=== PATIENT | male | born 1975 | race Hispanic/Latino ===

== ENCOUNTER → 2020-09-13 10:31 | Outpatient (CLI) | payer OTHER, SELFPAY ==
--- NOTE | ~2020-09-13 | MR_ITS ---
EXAMINATION: MR abdomen wo/w con DATE: 09/13/2020 11:43 INDICATION: Liver mass on CT . TECHNIQUE: Magnetic resonance imaging (MRI) of the abdomen was performed without and with 20 mL Multi andrea intravenous contrast. Sequences included coronal T2-weighted SS-FSE, coronal and axial FS 2D-F IESTA, axial STIR FSE, axial T2-weighted SS-FSE, axial T2-weighted FS SS-FSE, axial diffusion-weighte d SE, axial dual-echo T1-weighted FSPGR, and axial and coronal T1-weighted LAVA. Postcontrast axial T 1-weighted LAVA images were obtained in a time course. Postcontrast coronal T1-weighted LAVA images w ere obtained. COMPARISON: None. FINDINGS: Mild diffuse hepatic steatosis with small amount of signal dropout on opposed phase images. 7.3 x 5.2 cm mass in segment 4A of the liver which is negligibly hyperdense on T1 and T2-weighted imaging to t he surrounding hepatic parenchyma on precontrast imaging with somewhat serpiginous central region of decreased T1 and increased T2 signal intensity. There is also demonstrates restricted diffusion. Ther e is relatively homogeneous avid enhancement on the earliest arterial phase of imaging which is of lo wer signal intensity than the blood pool in the aorta and which spares the serpiginous low signal int ensity region. No evident washout with persistent enhancement which remains slightly hyperdense to th e hepatic parenchyma. The serpiginous low signal intensity region appears to partially fill in on the 5 and 10 minute delayed images. There is mild transient hepatic intensity difference involving some of the hepatic parenchyma surrounding the mass. Multiple low signal intensity gallstones within the lumen of the otherwise normal gallbladder. No int ra or extrahepatic biliary ductal dilation. Pancreas, spleen, bilateral adrenal glands and kidneys ar e normal. Visualized portion of the bowels including the appendix are normal. No pathologically enlar ged abdominal lymphadenopathy. Heart size is normal. No pericardial or pleural effusion. Bones are un remarkable with normal marrow signal throughout. IMPRESSION: 1. 7.3 x 5.2 cm mass in segment 4A of the liver with imaging features favoring but not definitive for focal nodular hyperplasia. Would consider CT-guided percutaneous biopsy for definitive determination . 2. Cholelithiasis. Reviewed, dictated and finalized at location A. IMPRESSION: 1. 7.3 x 5.2 cm mass in segment 4A of the liver with imaging features favoring but not definitive for focal nodular hyperplasia. Would consider CT-guided perc utaneous biopsy for definitive determination. 2. Cholelithiasis.
[2020-09-13 11:02] LABS: Estimated Glomerular Filt Rate > 60
== END ==
PROVIDERS: PCP Family Medicine Adolescent Medicine; Visit Provider Family Medicine Adolescent Medicine
DX: R16.0 Hepatomegaly, not elsewhere classified (principal); K80.20 Calculus of gallbladder without cholecystitis without obstruction
CPT/HCPCS: 74183; A9577

== ENCOUNTER → 2020-10-10 02:23 | Outpatient (CLI) | payer OTHER, SELFPAY ==
[2020-10-10 18:14] LABS: SARS-CoV-2 RNA PCR Negative
== END ==
PROVIDERS: PCP Family Medicine Adolescent Medicine; Visit Provider Family Medicine Adolescent Medicine
DX: Z01.812 Encounter for preprocedural laboratory examination (principal); Z20.822 Contact with and (suspected) exposure to COVID-19
CPT/HCPCS: C9803; U0003; U0005

== ENCOUNTER 2020-10-13 09:12 | Outpatient (CLI) | payer OTHER, SELFPAY ==
[2020-10-02 11:55] VITALS: BMI 35.4
[2020-10-13] VITALS (13 sets, daily range): BP systolic 123–155; BP diastolic 68–105; PULSE 54–78; RESP 14–18; TEMP 36.5; O2SAT 95–99
--- NOTE | ~2020-10-13 | CT_ITS ---
EXAMINATION: CT biopsy liver DATE: 10/13/2020 12:28 INDICATION: Liver mass. TECHNIQUE: The procedure including the risks, benefits, and alternatives was discussed with the patie nt. Risks discussed included bleeding and infection. The patient verbalized understanding of the risk s and agreed to proceed. The skin overlying the liver was prepped and draped in usual sterile fashio n. Anesthetic was administered with 1% lidocaine subcutaneously. A 19 gauge outer needle was advanc ed under CT guidance into the liver. A 20 gauge core biopsy needle was then used to obtain 3 core bio psy specimens. The mA was adjusted according to patient size. Iterative reconstruction technique was employed. The dose-length product was 296.26 mGy-cm. The needle was removed and the entry site was cl eaned and dressed. There were no immediate complications. FINDINGS: CT images demonstrate the outer needle tip an 7.4 cm mass in segment 4A of the liver. IMPRESSION: 1. CT-guided core needle biopsy of a liver mass. Reviewed, dictated and finalized at location A.
[2020-10-13 09:46] LABS: Mean Platelet Volume 9.4 fl (7.4-10.4); Platelet Count Result 312 k/mm3 (150-375)
[2020-10-13 10:00] LABS: INR 0.9; Prothrombin Time 12.9 Seconds (11.1-14.7)
[2020-10-13 14:23] LABS: Glucose Point of Care 179 mg/dl (65-105)
== END 2020-10-13 16:15 | disposition home or self-care (01) ==
PROVIDERS: Radiology Diagnostic Radiology; PCP Family Medicine Adolescent Medicine; Visit Provider Family Medicine Adolescent Medicine
DX: R16.0 Hepatomegaly, not elsewhere classified (principal)
CPT/HCPCS: 36415; 47000; 77012; 82948; 85049; 85610; 88307; 88313; C9803; U0003; U0005